=== PATIENT | female | born 1940 | race Caucasian/White ===

== ENCOUNTER 2022-04-22 10:42 | Emergency (ER) | payer MEDICARE, BC, SELFPAY ==
[2022-04-22 11:10] VITALS: BP 170/84; PULSE 61; RESP 16; TEMP 36.4; O2SAT 98; BMI 19.6
--- NOTE | 2022-04-22 11:22 | ED_ITS ---
HPI - General Adult General Chief complaint: Unspecified Complaint, Adult Stated complaint: Gash on left leg Time Seen by Provider: 04/22/22 11:18 Source: patient Mode of arrival: ambulatory Limitations: no limitations History of Present Illness HPI narrative: 81-year-old female coming in today with a wound on her left lower extremity that she suffered several days ago. She hit her leg on her car door. She comes in today because her daughter is concerned about possibility of infection. Saundra denies any symptomatic symptoms. Related Data Home Medications Medication Instructions Recorded Confirmed diltiazem HCl 180 mg 180 mg PO Q12H 04/22/22 04/22/22 capsule,extended release 24 hr metoprolol tartrate 50 mg tablet 50 mg PO Q12H 04/22/22 04/22/22 Previous Rx's Medication Instructions Recorded cephalexin 500 mg capsule 500 mg PO TID 7 days #21 caps 04/22/22 Review of Systems Status of ROS: Reports: 6 or more systems reviewed and unremarkable except as noted in History and below Exam Narrative: Exam Narrative: Well-nourished well-developed patient in no acute distress. Alert and oriented. Answers questions appropriately. Mood and affect are appropriate. HEENT: Normocephalic atraumatic. Pupils are equally round reactive to light. Extraocular muscles are intact. Conjunctivae are moist without any icterus noted. Extremities: She does have trace edema bilaterally. The left lower extremity has a 1/2 cm scab which appears to be healing correctly, she does have some mild surrounding erythema. There is no skin induration, the area is not hot to touch. There is no increased swelling around that area. Const: Vital Signs, click to edit/add: Vital Signs - 24 hr 04/22/22 11:10 Temperature 97.6 F Pulse Rate [Right Pulse Oximeter] 61 Respiratory Rate 16 Blood Pressure [Ri ght Upper Arm] 170/84 H Pulse Oximetry 98 Oxygen Delivery Me thod Room Air Course Course Hospital Course: We outlined the area of erythema today. Saundra's instructed to start taking antibiotics if the redness crosses this border. Vital Signs Vital signs: Initial Vital Signs Temperature 97.6 F 04/22/22 11:10 Temperature Source Temporal Artery Scan 04/22/22 11:10 Pulse Rate 61 04/22/22 11:10 Pulse Rhythm 04/22/22 11:10 Respiratory Rate 16 04/22/22 11:10 Blood Pressure 170/84 H 04/22/22 11:10 Blood Pressure Mean 112 04/22/22 11:10 Blood Pressure Position Sitting 04/22/22 11:10 Pulse Oximetry 98 04/22/22 11:10 Oxygen Delivery Method 04/22/22 11:10 Vital Signs Temperature 97.6 F 04/22/22 11:10 Pulse Rate 61 04/22/22 11:10 Respiratory Rate 16 04/22/22 11:10 Blood Pressure 170/84 H 04/22/22 11:10 Pulse Oximetry 98 04/22/22 11:10 Oxygen Delivery Method 04/22/22 11:10 Temperature 97.6 F 04/22/22 11:10 Pulse Rate 61 04/22/22 11:10 Respiratory Rate 16 04/22/22 11:10 Blood Pressure 170/84 H 04/22/22 11:10 Pulse Oximetry 98 04/22/22 11:10 Oxygen Delivery Method 04/22/22 11:10 Medical Decision Making MDM Narrative Medical decision making narrative: 81-year-old female with a wound to the left lower extremity, does appear to be healing appropriately. At this time I do not believe that it appears to be infected. However again, we did outline it and in the event the erythema continues or the area becomes indurated I do recommend she start taking the antibiotic which will be prescribed to her today. Discharge Plan Discharge Clinical Impression: Wound of lower extremity Patient Disposition: Home, Self-Care Condition: Stable Additional Instructions: The wound leg today appears to be healing appropriately. However, in the event that the redness starts to spread beyond the drawn borders or if there is pus draining from the wound, you can go ahead and start antibiotic treatment that will be sent to the pharmacy for you today. Continue to elevate your legs as much as possible during the day, this helps with wound healing. Follow-up with your primary care provider if you have any concerns. Prescriptions: New cephalexin 500 mg capsule 500 mg PO TID 7 Days Qty: 21 0RF No Action diltiazem HCl 180 mg capsule,extended release 24hr 180 mg PO Q12H metoprolol tartrate 50 mg tablet 50 mg PO Q12H Follow Up/Referrals: Kelly Glaser MD [Primary Care Provider] - Stand Al[facility]
== END 2022-04-22 11:40 | disposition home or self-care (01) ==
PROVIDERS: Emergency Provider Family Medicine; PCP Internal Medicine
DX: S81.802A Unspecified open wound, left lower leg, initial encounter (principal)
CPT/HCPCS: 99282; 99283; 99284

== ENCOUNTER 2023-07-28 12:27 | Outpatient (CLI) | payer MEDICARE, BC, SELFPAY | END 2023-07-28 12:28 | disposition home or self-care (01) | LOC: RAD 12:27 | PROVIDERS: PCP Internal Medicine; Visit Provider Internal Medicine | DX: R01.1 Cardiac murmur, unspecified (principal); I51.7 Cardiomegaly; I34.0 Nonrheumatic mitral (valve) insufficiency; I07.1 Rheumatic tricuspid insufficiency | CPT/HCPCS: 93306 ==

== ENCOUNTER 2024-06-24 16:17 | Outpatient (CLI) | payer MEDICARE, BC, SELFPAY | END 2024-06-24 16:18 | disposition home or self-care (01) | LOC: NFLDREF 16:17 | PROVIDERS: PCP Internal Medicine; Visit Provider Internal Medicine | DX: M81.0 Age-related osteoporosis without current pathological fracture (principal); E78.5 Hyperlipidemia, unspecified; I10 Essential (primary) hypertension | CPT/HCPCS: 82306 ==

== ENCOUNTER 2025-02-18 09:53 | Outpatient (CLI) | payer MEDICARE, BC, SELFPAY | END 2025-02-18 09:54 | disposition home or self-care (01) | LOC: NFLDREF 10:17 | PROVIDERS: PCP Internal Medicine; Visit Provider Internal Medicine | DX: Z01.818 Encounter for other preprocedural examination (principal) | CPT/HCPCS: 80053 ==

== ENCOUNTER 2025-02-26 07:31 | Day surgery (SDC) | payer MEDICARE, BC, SELFPAY ==
[2025-02-26] VITALS (25 sets, daily range): BP systolic 84–147; BP diastolic 58–85; PULSE 51–101; RESP 14–18; TEMP 35.6–37.1; O2SAT 91–100; BMI 20.7
[2025-02-26] MEDS: LACTATED RINGERS 1000 ML 1,000 ML 100 ML IV ×2 (07:15→10:30)
--- NOTE | 2025-02-26 07:57 | W.PM.H&PU ---
History & Physical Update History & Physical Update H&P Reviewed and patient assessed: No changes noted
[2025-02-26] MEDS: SODIUM CHLORIDE 0.9 % (FLUSH) 10 ML SYRINGE IVF (08:15)
[2025-02-26] MEDS: OXYCODONE (CR) 10 MG TAB.ER.12H PO (08:15)
[2025-02-26] MEDS: ACETAMINOPHEN 500 MG TABLET 1000 MG PO ×3 (08:15→21:46)
--- NOTE | 2025-02-26 08:37 | SUR.PREOP ---
TIME?OUT:?0837 PT/RN/MDA?VERIFICATION?OF?SURGICAL?SITE-left hip,?PROCEDURE,?NERVE BLOCK, AND?CONSENT OBTAINED?PRIOR?TO?INVASIVE?PROCEDURE.
[2025-02-26] MEDS: MIDAZOLAM HCL 1 MG/ML inj IVP (08:40)
[2025-02-26] MEDS: fentaNYL 100 MCG/2 ML inj IVP (08:40)
--- NOTE | 2025-02-26 09:08 | CRLHL7_ITS ---
For Patients: As a result of the Cures Act, medical imaging exams and procedure reports are released immediately into your electronic medical record. You may view this report before your referring provider. If you have questions, please contact your health care provider. Indication: s/p Total hip arthroplasty Technique: AP hip centered pelvis and lateral view left hip Findings/Impression: Hardware from a left total hip arthroplasty is in satisfactory position. Bone alignment is normal. No sign of acute fracture. Postop changes are within normal limits. Dictated by Yonis Fitch MD @ 02/26/2025 1:53:25 PM (Electronically Signed)
[2025-02-26] MEDS: TRANEXAMIC ACID 100 MG/ML INJ 1000 MG IV (09:14)
[2025-02-26] MEDS: CEFAZOLIN 1 GM inj IVP (09:14)
--- NOTE | 2025-02-26 09:15 | CRLHL7_ITS ---
For Patients: As a result of the Cures Act, medical imaging exams and procedure reports are released immediately into your electronic medical record. You may view this report before your referring provider. If you have questions, please contact your health care provider. Indication: Hip replacement surgery Technique: AP hip fluoroscopic image. Fluoroscopy time 60.2 seconds. Findings/Impression: Hardware from a left total hip arthroplasty is in satisfactory position. Dictated by Yonis Fitch MD @ 02/26/2025 11:09:43 AM (Electronically Signed)
--- NOTE | 2025-02-26 09:16 | P.ANES_ITS ---
Anesthesia Charges Start Date/Time Anesthesia Start Date: 02/26/25 Anesthesia Start Time: 08:52 Stop Date/Time Anesthesia Stop Date: 02/26/25 Anesthesia Stop Time: 11:03 Summary Extremes of Age - Over 70 or under 1: GUEST SERVICES REPRESENTATIVE Coding CPT Codes CPT Codes: ANESTH HIP ARTHROPLASTY - 42617 ([id number]) P2 - PATIENT W/MILD SYST DISEASE, QK - SENIOR ACCOUNTING ASSOCIATE 2-4 CNCRNT ANES PROC, QX - GUEST SERVICES REPRESENTATIVE SVC W/ MD MED DIRECTION Additional Codes: Summary - Extremes of Age - Over 70 or under 1: GUEST SERVICES REPRESENTATIVE ([id number])
--- NOTE | 2025-02-26 09:16 | W.ANESCHARGE ---
Anesthesia Charges Start Date/Time Anesthesia Start Date: 02/26/25 Anesthesia Start Time: 08:52 Stop Date/Time Anesthesia Stop Date: 02/26/25 Anesthesia Stop Time: 11:03 Summary Extremes of Age - Over 70 or under 1: PRODUCT MARKETING ENGINEER Coding CPT Codes CPT Codes: ANESTH HIP ARTHROPLASTY - 40888 ([id number]) P2 - PATIENT W/MILD SYST DISEASE, QK - LIQUID CHLORINE OPERATOR 2-4 CNCRNT ANES PROC, QX - PRODUCT MARKETING ENGINEER SVC W/ MD MED DIRECTION Additional Codes: Summary - Extremes of Age - Over 70 or under 1: PRODUCT MARKETING ENGINEER ([id number])
--- NOTE | 2025-02-26 10:10 | P.NB_ITS ---
Nerve Block Nerve Block Time Seen by Provider: 08:40 Date Seen: 02/26/25 Type of block requested by surgeon for post-operative analgesia: TANNER/LFCN Side: left Time out performed: Yes Verification of patient name: Yes Verification of date of : Yes Site marking: site marked Name of person performing procedure: Dawit Continuous monitoring Was continuous monitoring of O2 sat, B/P, alarm security or surveillance monitor, recorded every 15 minutes?: Yes Procedure Checklist: sterile prep, needles and gloves Ultrasound guided. Images saved: Yes Medications given in 5ml increments after negative aspiration: Ropivicaine %: 0.5 mL: 30 Needle gauge: 20 Precedex (mcg): 25 Patient tolerated procedure well: Yes Additional comments: Needle noted below psoas tendon needle noted adjacent to LFCN Block Charges Block Charge (with Pro Fee): Other Periph Nerve Block Use of Ultrasound Machine for Block: Yes- US Guidance/pain block
--- NOTE | 2025-02-26 10:11 | P.ANES_ITS ---
Anesthesia Charges Start Date/Time Anesthesia Start Date: 02/26/25 Anesthesia Start Time: 08:52 Stop Date/Time Anesthesia Stop Date: 02/26/25 Anesthesia Stop Time: 11:03 Summary Extremes of Age - Over 70 or under 1: MDA Coding CPT Codes CPT Codes: ANESTH HIP ARTHROPLASTY - 77219 ([id number]) P2 - PATIENT W/MILD SYST DISEASE, QK - CHILD ADOLESCENT PSYCHIATRIST 2-4 CNCRNT ANES PROC, QX - SCHOOL OFFICE MANAGER SVC W/ MD MED DIRECTION Additional Codes: Summary - Extremes of Age - Over 70 or under 1: MDA ([id number])
--- NOTE | 2025-02-26 10:11 | W.ANESCHARGE ---
Anesthesia Charges Start Date/Time Anesthesia Start Date: 02/26/25 Anesthesia Start Time: 08:52 Stop Date/Time Anesthesia Stop Date: 02/26/25 Anesthesia Stop Time: 11:03 Summary Extremes of Age - Over 70 or under 1: MDA Coding CPT Codes CPT Codes: ANESTH HIP ARTHROPLASTY - 72344 ([id number]) P2 - PATIENT W/MILD SYST DISEASE, QK - LOGISTICS ASSOCIATE 2-4 CNCRNT ANES PROC, QX - WELDING MACHINE OPERATOR HELPER GAS SVC W/ MD MED DIRECTION Additional Codes: Summary - Extremes of Age - Over 70 or under 1: MDA ([id number])
--- NOTE | 2025-02-26 10:52 | PM.ORPRC ---
Procedure Note Date of procedure: 02/26/25 Procedure: PREOPERATIVE DIAGNOSIS: 1. Left hip osteoarthritis, severe, primary POSTOPERATIVE DIAGNOSIS: 1. Left hip osteoarthritis, severe, primary PROCEDURE: 1. Left total hip arthroplasty-anterior approach 2. 85470 - intraoperative fluoroscopy up to 1 hour. SURGEON: Arcadio Leyva MD. INCOME TAX ADVISOR: Gus Lua PA-C; Tita Moran PA-C - Of note, a skilled therapeutic recreation assistant was critical for this case to aid in patient positioning, tissue retraction, limb manipulation/positioning, dislocation/relocation, patient safety, and closure. ANESTHESIA: Spinal anesthetic EBL: 300 mL IMPLANTS: DePuy J&J uncemented total hip [place] cup size 52, hole eliminator, +4 neutral liner Actis stem, high offset, size 6 +1.5 mm ceramic 36 mm head. COMPLICATIONS: None evident INDICATIONS: The patient is a pleasant 84-year-old female who has experienced severe left hip pain and difficulty bearing weight. Workup included x-rays which revealed severe osteoarthrosis in the hip. Given the deformity, the dysfunction, and the pain, as well as the failure of nonoperative management, recommendation was made for surgery. FINDINGS: Full-thickness chondral loss throughout the femoral head broadly as well as the acetabulum. On the acetabulum, there was significant sclerotic bone on the superolateral aspect yet the more anterior wall still was relatively thick/robust even after reaming, but the anterior retractor did mello through the anterior wall in a small section. On the femur the cancellous bone was soft but the cortical bone was johns and strong. DESCRIPTION OF PROCEDURE: Following a thorough discussion of risks, benefits, and alternatives consent was obtained and the left hip was marked. The patient was brought to the operating room and placed supine on the operating table. Induction of anesthesia was undertaken. 1 g IV Ancef and 1 g tranexamic acid was administered within 1 hr of incision preoperatively. Proper time-out was performed identifying proper patient, site, procedure. The operative extremity was prepped and draped in the appropriate sterile fashion using ChloraPrep after the patient was positioned on the [place] table with head in neutral alignment and all bony prominences well padded. C-arm fluoroscopic imaging was utilized to confirm proper pelvis rotation and position, and to get true AP films of both the contralateral left, and the affected left hip. This is for comparison. A longitudinal incision was made starting approximately 1 cm distal to the ASIS, and 3-4 cm lateral. The incision was extended distally aiming toward the lateral border the patella. Sharp incision through skin and bovie cautery through the subcutaneous tissue allowed identification of the TFL fascia. This was sharply divided, and the fascia bluntly released from the muscle fibers as we dissected medial. Upon coming to the medial border, we were able to retract the TFL laterally, and penetrated the deeper fascia and identify the crossing circumflex vessels. These were ligated/cauterized. The rectus was elevated from the capsule, and retractors placed laterally and medially along the femoral neck to help with visualization of the capsule. We then performed an inverted T capsulotomy. The capsule was tagged for later repair. Retractors were placed inside the capsule. The femoral neck was visualized after releasing medially down to the lesser trochanter, along the saddle laterally, and up onto the acetabulum. The femoral neck cut was made in line with our preoperative templating. The head was removed after it split while pulling it out using the corkscrew. Thus, it was pulled out piecemeal. We turned our attention to acetabular preparation. Initially, the labrum was resected from around the perimeter, the pulvinar was excised, allowing us to visualize the false wall. We started the reaming with a 43 mm reamer. This was medialized down to the true wall. We then enlarged our reamers sequentially up to one size less than the selected cup size. We trialed at the same size and found it to have an excellent fit. The selected cup was then opened, inserted, and impacted in line with the goal of 40-45? of abduction, and 20-25? of anteversion. This was confirmed on C-arm fluoroscopic imaging to be in the appropriate/goal position. Once the cup was placed we placed a hole eliminator and a liner consistent with preop planning. Attention was turned to the femoral preparation. The limb was extended, externally rotated, and adducted. The posteromedial capsule was released, as retractors were placed allowing excellent access to the proximal femur. Initially a box truck washer was followed by canal finder followed by various broaches. We broached sequentially up to size noted above, found it to have excellent rotational control, and trialing various heads and necks, revealed that appropriate neck offset, and the above noted head size provided the greatest stability, and druze of length, and offset. C-arm fluoroscopic imaging confirmed position of the stem, as well as leg lengths, which were compared with the pre procedure all fluoroscopic images. Trial implants were removed, the real femoral stem inserted, as was the ceramic head. After reducing, the leg was placed through range of motion and stability was confirmed anterior, posterior, and lateral. A 3 min Betadine soak was then performed, and thorough irrigation with normal saline followed. Closure of the capsule was performed with #1 PDS. Bleeding was confirmed to be controlled at this stage, and the TFL fascia was closed with #0 strata fix. Subcutaneous, and subcuticular closure was performed with 2-0 Vicryl and 4-0 Monocryl, respectively. Dressings were applied, and the patient was awoken from anesthesia and transferred the PACU in stable condition. A skilled therapeutic recreation assistant was critical for this case to aid in patient positioning, tissue retraction, proximal femur exposure, limb manipulation/positioning, dislocation/relocation, patient safety, and closure. PLAN: 1. Weight bear as tolerated operative extremity. 2. 23 hr perioperative antibiotics. 3. Ice. 4. PT/OT consults for ambulation assistance/mobility education. 5. Social work consult for discharge planning. 6. DVT prophylaxis with at SCDs and Xarelto x5 days followed by aspirin for a total of 1 month..
[2025-02-26] MEDS: fentaNYL 100 MCG/2 ML inj 50 MCG IVP ×2 (11:46→12:01)
[2025-02-26] MEDS: CEFAZOLIN 1 GM in 0.9 % SODIUM CHLORIDE Mini-bag 100 ML IVPB (17:08)
--- NOTE | 2025-02-26 17:52 | PM.IMCN1 ---
Date of Consult Patient: [facility] Patient Consult date: 02/26/25 Requesting Physician: Orthopedics Primary Care Provider: Kelly Glaser MD Consult Narrative Reason for consult: Medical management of comorbidities Narrative: Saundra Richards is a 84 year old female who presented to the hospital today for an elective L ANUP. There were no surgical or anesthetic complications noted during procedure. Patient's H&P reviewed, PCP is Dr. Glaser Past medical history significant for: osteoporosis, osteoarthritis, Essential HTN, hyperlipidemia. History of blood clots: No Postoperative plan: Home with daughters. Review of Systems Status of ROS: Reports: 10 or more systems reviewed and unremarkable except as noted in History and below [facility] Medical History (Updated 02/26/25 @ 17:59 by Rupa Blanc MD) Tricuspid regurgitation ?I07.1 - Rheumatic tricuspid insufficiency (ICD-10) Osteoporosis ?M81.0 - Age-related osteoporosis without current pathological fracture (ICD-10) Essential hypertension ?I10 - Essential (primary) hypertension (ICD-10) Hyperlipidemia ?E78.5 - Hyperlipidemia, unspecified (ICD-10) No vaccination-pt refuse ?Z28.21 - Immunization not carried out because of patient refusal (ICD-10) Surgical History (Updated 02/26/25 @ 17:59 by Rupa Blanc MD) S/P hip replacement ?Z96.649 - Presence of unspecified artificial hip joint (ICD-10) 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.2 - Postprocedural hypoparathyroidism (ICD-10) History of hysterectomy ?Z90.710 - Acquired absence of both cervix and uterus (ICD-10) History of basal cell carcinoma excision ?Z98.890 - Other specified postprocedural states (ICD-10) ?Z85.828 - Personal history of other malignant neoplasm of skin (ICD-10) History of tonsillectomy ?Z90.89 - Acquired absence of other organs (ICD-10) Social History (Updated 06/25/24 @ 08:05 by Naty Borrero ~ [facility]) What is your current living situation?: I presently have a place to live Problems where you live: no known problems In the past 12 months, utilities in danger of being shut off: no In past 12 months, lack of transportation kept you from medical appts, meetings, work, or getting things needed for daily living: no In the past 12 mos, have been you worried that your food would run out before you had money to buy more?: never true In the past 12 mos, the food you bought just didn't last and you didn't have money to buy more?: never true Highest level of school completed/degree received: 11th grade Smoking Status: Never smoker Do you use any of these nicotine containing products: None Second hand tobacco smoke exposure: No How often do you have a drink containing alcohol: monthly or less How many standard drinks containing alcohol do you have on a typical day: 1 or 2 How often do you have six or more drinks on one occasion: Never AUDIT-C Alcohol total score: 1 Non-prescribed substance use: denies use Caffeine: Yes (daily coffee) How often does anyone, including family, friends and others, physically hurt you: never How often does anyone, including family, friends and others, insult or talk down to you: never How often does anyone, including family, friends and others, threaten you with harm: never How often does anyone, including family, friends and others, scream or curse at you: never service: No Meds Home Medications and Allergies Home Medications ?Medication ?Instructions ?Recorded ?Confirmed ?Type diltiazem HCl 180 mg 180 mg PO BID #180 caps 06/24/24 02/26/25 Rx capsule,extended release 24 hr loperamide 2 mg tablet 6 mg (3 x 2 mg) PO .AM #270 tabs 06/24/24 02/26/25 Rx metoprolol tartrate 50 mg tablet 50 mg PO BID #180 tabs 06/24/24 02/26/25 Rx acetaminophen 500 mg capsule 500 - 1,000 mg (1 - 2 x 500 mg) PO 02/26/25 Rx Q6H PRN #100 caps aspirin 81 mg tablet,delayed 81 mg PO BID #50 tabs 02/26/25 Rx release oxycodone 5 mg tablet 2.5 - 5 mg (0.5 - 1 x 5 mg) PO 02/26/25 Rx Q4-6H PRN pain #30 tabs rivaroxaban 10 mg tablet 10 mg PO DAILY #4 tabs 02/26/25 Rx sennosides 8.6 mg-docusate sodium 1 - 4 tab-cap (1 - 4 x 8.6-50 mg) 02/26/25 Rx 50 mg tablet (Senna-S) PO BID PRN constipation #60 tabs Allergies Allergy/AdvReac Type Severity Reaction Status Date / Time No Known Drug Allergies Allergy Verified 02/26/25 07:17 Exam Narrative: Exam Narrative: GEN: Alert and oriented sitting comfortably in bedside chair HEENT: EOMIs bilaterally, no scleral icterus CV: RRR, No concerning murmurs R: LCTA bilaterally Skin: No concerning skin lesions or rashes on exposed skin Neuro: Nonfocal Psych: Appropriate Const: Vital Signs, click to edit/add: Vital Signs - 24 hr 02/26/25 08:10 02/26/25 08:35 02/26/25 08:40 Temperature 98.8 F Pulse Rate 70 61 71 Respiratory Rate 16 14 14 Blood Pressure 147/83 H 145/84 H 143/85 H Pulse Oximetry 95 96 96 Oxygen Delivery Me thod Room Air Nasal Cannula Nasal Cannula Oxygen Flow Rate 3 3 02/26/25 08:45 02/26/25 11:30 02/26/25 11:35 Temperature 97.1 F L Pulse Rate 51 L 60 58 L Respiratory Rate 16 16 16 Blood Pressure 115/66 107/60 97/64 Pulse Oximetry 97 91 95 Oxygen Delivery Me thod Nasal Cannula Nasal Cannula Oxygen Flow Rate 3 3 02/26/25 11:40 02/26/25 11:45 02/26/25 11:50 Temperature Pulse Rate 59 L 57 L 52 L Respiratory Rate 16 18 16 Blood Pressure 147/64 H 122/66 122/69 Pulse Oximetry 99 97 100 Oxygen Delivery Me thod Oxygen Flow Rate 02/26/25 11:55 02/26/25 12:00 02/26/25 12:05 Temperature Pulse Rate 61 70 61 Respiratory Rate 16 16 16 Blood Pressure 127/75 125/63 84/68 L Pulse Oximetry 99 96 95 Oxygen Delivery Me thod Nasal Cannula Oxygen Flow Rate 4 02/26/25 12:10 02/26/25 12:23 02/26/25 12:23 Temperature 97.3 F L 96.0 F L 96.0 F L Pulse Rate 51 L 52 L 52 L Respiratory Rate 16 14 14 Blood Pressure 100/76 116/74 116/74 Pulse Oximetry 98 96 96 Oxygen Delivery Me thod Room Air Room Air Room Air Oxygen Flow Rate 02/26/25 12:30 02/26/25 12:45 02/26/25 13:00 Temperature 96.0 F L 96.1 F L 96.0 F L Pulse Rate 61 62 68 Respiratory Rate 14 14 16 Blood Pressure 114/68 116/66 115/64 Pulse Oximetry 92 91 93 Oxygen Delivery Me thod Room Air Room Air Room Air Oxygen Flow Rate 02/26/25 13:15 02/26/25 13:30 02/26/25 14:00 Temperature 96.2 F L Pulse Rate 60 101 H 65 Respiratory Rate 16 Blood Pressure 121/63 122/84 118/76 Pulse Oximetry 94 Oxygen Delivery Me thod Room Air Oxygen Flow Rate 02/26/25 15:00 02/26/25 16:00 Temperature Pulse Rate 59 L 61 Respiratory Rate Blood Pressure 127/65 121/58 L Pulse Oximetry Oxygen Delivery Me thod Oxygen Flow Rate Assessment and Plan Assessment and plan (1) S/P hip replacement: Problem comment: - left, 02/26/25, Dr. Leyva Status: Acute Plan - pain management and prophylaxis per orthopedic surgery team - continue home medications for comorbidities - anticipate routine postoperative course
--- NOTE | 2025-02-26 19:14 | PC.NURSE ---
End of Shift: Patient pleasant and cooperative, VSS, afebrile. SpO2 maintained above 90% on RA. Dressing to left hip C/D/I/. Patient reports pain in her hip, but declined PRN medication. Denies nausea. 1A with walker and gait belt.
[2025-02-26] MEDS: METOPROLOL TARTRATE 50 MG TABLET PO (21:45)
[2025-02-27] VITALS: O2SAT 96
[2025-02-27] MEDS: OXYCODONE 5 MG TABLET PO ×2 (00:29→05:09)
[2025-02-27] MEDS: CEFAZOLIN 1 GM in 0.9 % SODIUM CHLORIDE Mini-bag 100 ML IVPB (00:31)
[2025-02-27 00:57] VITALS: BP 142/79; PULSE 66; RESP 16; TEMP 36.2; O2SAT 96
[2025-02-27 04:24] VITALS: BP 150/82; PULSE 69; RESP 18; O2SAT 95
[2025-02-27] MEDS: ACETAMINOPHEN 500 MG TABLET 1000 MG PO (05:08)
--- NOTE | 2025-02-27 06:13 | PC.NURSE ---
Pt pleasant and cooperative. Up with asssist of 1 walker and gait belt. has been rating pain minimally. Gave her and oxy 5mg this am to be ready for therapy. She has been up to the bathroom x1 this shift. Incision drsg is CDI.
[2025-02-27 06:39] LABS: Basophils Percent Auto 0.1 % (0.0-3.0); Hematocrit 32.8 % (33.0-51.0); Immature Granulocytes Pct Auto 0.4 %; Mean Corpuscular HGB Conc 34 gm/dL (32-36); Mean Corpuscular Hemoglobin 30 pg (26-34); Mean Corpuscular Volume 88 fL (80-100); Neutrophils Percent Auto 85.5 % (42.0-72.0); Platelet Count* 340 K/uL (140-440); RDW Coefficient of Variation % 12.6 % (11.5-15.5); Red Blood Count 3.72 m/uL (4.00-5.20); White Blood Count* 24.61 K/uL (4.50-11.00)
[2025-02-27 06:40] LABS: Slide Review Reflex No
[2025-02-27 06:51] LABS: Potassium* 4.1 mmol/L (3.6-5.1); Sodium* 136 mmol/L (135-149)
[2025-02-27 06:54] LABS: Blood Urea Nitrogen* 14 mg/dL (7-30); Creatinine* 0.6 mg/dL (0.5-1.5); Est. Creatinine Clearance* 38.82; Estimated Glomerular Filt Rate 90 ml/min
[2025-02-27 07:00] VITALS: PULSE 65; RESP 18; O2SAT 95
[2025-02-27 08:00] VITALS: BP 118/75; PULSE 65; RESP 18; TEMP 36.6; O2SAT 95
[2025-02-27] MEDS: METOPROLOL TARTRATE 50 MG TABLET PO (08:23)
[2025-02-27] MEDS: dilTIAZem 180 MG CAP (CD) PO (08:23)
[2025-02-27] MEDS: RIVAROXABAN 10 MG TABLET PO (08:25)
--- NOTE | 2025-02-27 12:03 | PC.SOCIAL ---
Discharge Plan: Met with pt. to discuss discharge plans. Pt. was here for a LTHA and lives in a single level home with two steps in. Pt. plans to discharge home today with her daughter Viola staying with her until Monday and then her other daughter will stay another few days. Pt. has a sign. other that will bring her meals as needed and a committee lined up to take her to her outpatient therapy. Pt. feels she is well supported for her discharge home.
--- NOTE | 2025-02-27 13:33 | PM.ORPN ---
Subjective Subjective Date Seen: 02/27/25 Principal diagnosis: Status postop day 1, left total hip arthroplasty - anterior approach Interval history: Patient reports doing well. No acute events over night. Pain managed with scheduled and PRN medications, ice. DVT prophylaxis: Rivaroxaban, SCDs, walking. Denies fevers, chills, aches, N/V, CP, SOB/SEXTON, or lightheadedness. Ortho Exam Narrative Exam Narrative: -Patient appears comfortable in bed; no apparent acute distress -Alert and oriented times 3 -Operative hip swollen; soft tissues supple; no obvious erythema. Ecchymosis minimal. Warmth appropriate -Surgical dressing clean, dry, intact; no obvious drainage, no erythematous streaking peripheral to the bandage -Bilateral calves soft and supple; no significant swelling, edema, tenderness, erythema, discoloration, warmth, or palpable cords -2+ DP/PT pulses, intact dermatomes and myotomes distally (5/5 strength). Mild numbness about the lateral femoral cutaneous nerve distribution. Const Vital Signs, click to edit/add: Vital Signs - 24 hr 02/26/25 14:00 02/26/25 15:00 02/26/25 15:00 Temperature Pulse Rate 65 59 L Pulse Rate [Left Pulse Oximeter] Respiratory Rate 16 Blood Pressure 118/76 127/65 Blood Pressure [Left Arm] Pulse Oximetry Oxygen Delivery Method 02/26/25 15:00 02/26/25 16:00 02/26/25 17:00 Temperature Pulse Rate 61 81 Pulse Rate [Left Pulse Oximeter] Respiratory Rate 16 Blood Pressure 121/58 L 119/69 Blood Pressure [Left Arm] Pulse Oximetry 95 Oxygen Delivery Method Room Air 02/26/25 18:00 02/26/25 20:18 02/27/25 00:00 Temperature 97 F L Pulse Rate 84 Pulse Rate [Left Pulse Oximeter] 73 Respiratory Rate 16 Blood Pressure 128/74 Blood Pressure [Left Arm] 134/73 Pulse Oximetry 96 96 Oxygen Delivery Method Room Air Room Air 02/27/25 00:57 02/27/25 04:24 02/27/25 07:00 Temperature 97.1 F L Pulse Rate Pulse Rate [Left Pulse Oximeter] 66 69 Respiratory Rate 16 18 18 Blood Pressure Blood Pressure [Left Arm] 142/79 H 150/82 H Pulse Oximetry 96 95 95 Oxygen Delivery Method Room Air Room Air Room Air 02/27/25 07:00 02/27/25 08:00 Temperature 97.9 F Pulse Rate Pulse Rate [Left Pulse Oximeter] 65 65 Respiratory Rate 18 18 Blood Pressure Blood Pressure [Left Arm] 118/75 Pulse Oximetry 95 Oxygen Delivery Method Room Air Assessment and Plan Assessment and plan (1) S/P hip replacement: Problem details: - left, 02/26/25, Dr. Leyva Status: Acute Plan - Complete 23 hour perioperative antibiotics. - PT/OT consult for education and assistance. - Social work consult for discharge planning - Prescribed analgesics as needed - DVT prophylaxis: Rivaroxaban, walking, and SCDs - Anticipation is for discharge to home with family/friends today 02/27/2025 if the patient remains medically stable, pain is controlled, and they are safe with mobilization.
--- NOTE | 2025-02-27 14:59 | PC.NURSE ---
End of Shift: Patient pleasant and cooperative, A&O. VSS, afebrile. spO2 maintained above 90% on RA. Dressing to left hip C/D/I. IV removed with tip intact. Discharge instructions provided, all questions answered. Discharged to home at 1247
== END 2025-02-27 12:47 | disposition home or self-care (01) ==
LOC: OR 07:34 → MEDSURG 07:34
PROVIDERS: PCP Internal Medicine; Visit Provider Orthopaedic Surgery Sports Medicine
PROC: (CPT 27130; principal; 2025-02-26 09:15)
DX: M16.12 Unilateral primary osteoarthritis, left hip (principal); G89.18 Other acute postprocedural pain; I10 Essential (primary) hypertension; M81.0 Age-related osteoporosis without current pathological fracture; Z79.82 Long term (current) use of aspirin; I07.1 Rheumatic tricuspid insufficiency; E78.5 Hyperlipidemia, unspecified; E89.2 Postprocedural hypoparathyroidism; Z85.828 Personal history of other malignant neoplasm of skin
CPT/HCPCS: 27130; 01214; 36415; 64450; 73501; 76000; 76942; 82565; 84132; 84295; 84520; 85025; 86850; 86900; 86901; 97110; 97116; 97162; 97165; 97530; 97535; 99100; A9270; C1776; J0690; J1100; J2250; J2405; J2704; J2795; J3010; J7120

== ENCOUNTER 2025-03-19 11:15 | Outpatient (RCR) | payer MEDICARE, BC, SELFPAY ==
--- NOTE | 2025-03-07 09:11 | PT.OPEX ---
PT [place] Outpatient Eval PT [facility] Outpatient Eval Start: 03/05/25 13:55 Freq: Status: Active Protocol: Document 03/05/25 15:15 ENM (Rec: 03/05/25 15:16 ENM [id number]) E-signed By DELILAH HornerT Physical Therapy Outpatient Evaluation Insurance Information Recert Due Date 06/03/25 Insurance Name Medicare B Medical Diagnosis presence of left artificial hip joint L ANUP 02/26/25 Treating Diagnosis impaired gait, impaired balance, muscle weakness, decreased hip ROM, low back pain Referring MD Leyva Subjective Subjective Patient underwent L ANUP on 02/26/25. Has had acute queasiness for a week since surgery. Today she has started to feel better. Presents to clinic without an AD and requests therapists arm to walk back to room. States that her back has been painful since surgery. She cannot get comfortable. This is the most upsetting thing for her right now. Is just taking ibuprofen once a day for pain relief, doesn't really have any pain in the hip. Is able to get out of bed and move well on her own. Daughters have been staying with her. Feels comfortable being independent right now. Her goal is to get back to dancing and going to outdoor music venues. Prior to surgery she had been walking around holding on to people for assistance. Is still using the walker at home. Has an elevated toilet riser. There are 2 steps to get into the house where she is supporting herself on a stool or lawn chair to perform. Is having people bring her the mail for the next two weeks. Has been getting up to walk every hour with the walker. Does have a cane at home but she doesn't like it. PMHx: osteoporosis, HTN, Date of Surgery (If 02/26/25 applicable) Current Work Status Retired Objective Other/Pertinent Knee AROM Objective L 0-0-121 R 0-0-130 hip ROM able to display heel slide to 70 degs comfortable passive range of hip flexion to 90 degs comfortable strength: fair quad set unable to perform SLR without assist from therapist. Is able to compensate using core instead to perform with right knee flexed gait/balance: Patient ambulates with DATA TRANSCRIBER from therapist , decreased weight acceptance of LLE, small step length , flexed trunk posture with slow pace palpation/joint mobility: mild tenderness to palpation along mid ITB and distal lateral quad swelling/observation: minimal swelling, no bruising Assessment Assessment/ Patient presents to PT for evaluation after L ANUP . They had been having increasing hip pain and difficulty ambulating. Since surgery they have been doing well with mild nausea, minimal pain and swelling. Their primary discomfort is in their low back which is limiting their sleeping ability. Pain is being managed with icing and ibuprofen. Upon assessment patient displays decreased hip ROM, impaired gait, impaired transfers, decreased quad strength and mild swelling. Impairments consistent with s/p ANUP. Therapist reinforcing continuing to use assistive device to decrease antalgic gait and avoid flare up in symptoms, pt reporting understanding. Saundra would benefit from skilled PT to address impairments stated above for return to PLOF after hip replacement. Primary Functional functional mobility, dancing, gardening Limitations Plan of Care Rehabilitation [facility] In 6-8 weeks: Goals 1. Patient will be able to lift leg in/out of bed and car without pain to improve ease of transfers 2. Patient will be able to stand and/walk up to 20 minutes without use of AD or report of increased hip pain 3. Patient will A/D flight of 10 steps reciprocally with symmetric WB for improved navigation of household 4. Patient will return to gardening without limitations for return to PLOF 5. Patient will be IND with HEP and self management of symptoms Coordination/ Referral Source Communication With Treatment Plan/ Dry Needling,Electrical Stimulation,Gait Training,Ice/ Direct Interventions Cold/Vasopneumatic,Joint Mobilization,Manual Therapy, Neuromuscular Re-ed,Self-Care/Home Management, Therapeutic Activities,Therapeutic Exercises Frequency/Duration 1x a week for 6-8 visits Patient Will Be Completion of LTG(s),Independent w/HEP Discharged From Therapy Evaluation Billing Untimed Code 23 Treatment Minutes Complexity Low Certification Information Initial 03/05/25 Certification Date Ending Certification 06/03/25 Date Provider Signature Yes Required Provider Signature POC & Medical Necessity Shows Agreement With Physician NPI Number Write NPI# Here Physician Comment/ : Change Physician Signature Please Sign/Date Here & Date Requested
== END 2025-06-09 09:43 | disposition home or self-care (01) ==
PROVIDERS: PCP Internal Medicine; Visit Provider Orthopaedic Surgery Sports Medicine
DX: Z47.1 Aftercare following joint replacement surgery (principal); Z96.642 Presence of left artificial hip joint; M54.50 Low back pain, unspecified; Z51.89 Encounter for other specified aftercare
CPT/HCPCS: 97110; 97116; 97161